=== PATIENT | male | born 1995 | race Caucasian/White ===

== ENCOUNTER 2018-06-11 05:51 | Emergency (ER) | payer SELFPAY ==
[2018-06-11] MEDS ORDERED: KETOROLAC 30 MG/ML INJ ONE (06:34)
[2018-06-11] MEDS ORDERED: NA CHLORIDE 0.9% 1,000 ML ONE (06:34)
[2018-06-11 06:48] LABS: Urine Blood 2+ (NEG); Urine Glucose NEGATIVE (NEG); Urine Protein 1+ (NEG); Urine Specific Gravity >1.030 (1.005-1.030); Urine pH 5.5 (5.0-7.0)
[2018-06-11 06:49] LABS: Urine Bacteria <20 /HPF (NONE SEEN); Urine Culture Reflex Order NOT NEEDED; Urine Mucus 3+ /HPF (NONE SEEN); Urine Volume 1 ML
[2018-06-11 06:57] LABS: Absolute Lymphocytes (CBC) 2.2 K/uL (0.7-4.9); Absolute Monocytes 0.5 K/uL (0.1-1.3); Absolute Neutrophil 4.5 K/uL (1.8-8.0); Basophils % 0.4 % (0-1.3); Eosinophils % 3.2 % (0-4.4); Hematocrit 41.6 % (39.6-49.0); Lymphocytes % 29.4 % (15.3-44.8); MCH 31.8 pg (27.0-35.0); MCV 91.3 fL (80-100); MPV 8.7 fL (7.6-11.3); Monocytes % 7.1 % (3.3-12.3); RBC Red Blood Cell Count 4.56 M/uL (4.33-5.43)
[2018-06-11 07:13] LABS: Albumin 3.8 g/dL (3.4-5.0); Bilirubin Direct 0.1 mg/dL (0-0.2); Bilirubin Total 0.5 mg/dL (0.2-1.0); Potassium 3.3 mmol/L (3.5-5.1); Protein, Total 7.2 g/dL (6.4-8.2)
--- NOTE | 2018-06-11 07:53 | RAD REPORT ---
EXAM DESCRIPTION: CT - Stone Protocol - 06/11/2018 7:12 am CLINICAL HISTORY: Left lower quadrant pain, dysuria A preliminary written report was provided at the time of the study, and the report was reviewed prio r to final dictation. COMPARISON: None. TECHNIQUE: Axial 5 mm thick images were obtained without oral or IV contrast. The [id number] span s the entirety of the system partially obscuring uppermost abdomen and lung bases. All CT scans are performed using dose optimization technique as appropriate and may include automated exposure control or mA/KV adjustment according to patient size. FINDINGS: Patient has a 2-3 mm calcification at the left UVJ. Very little left-sided hydronephrosis is identifiable. No other obstructing calculus in either collecting system. Possible punctate 1 mm no nobstructing calyx calcification on the left. No suspicious renal masses. Isodense masses and pyelone phritis are not excluded on a stone protocol CT scan. Contracted urinary bladder shows no suspicious finding. Imaged portions of the liver, spleen and pancreas show no suspicious findings on non-contrast imaging . No gallbladder or biliary tree abnormality identified. No significant adrenal finding. No suspicious bowel findings. Appendix is not suspicious. No hernia, mass or bulky lymphadenopathy noted. No free air, free fluid or inflammatory stranding. No significant bony abnormality. IMPRESSION: Left UVJ 2-3 mm calculus with little hydronephrosis identifiable. Isodense masses and pyelonephritis are not excluded on stone protocol technique.
--- NOTE | 2018-06-11 08:02 | ER ---
Nurse's Notes [facility] Name: Raphael Bourgeois Age: 23 yrs Sex: Male : 1995 Arrival Date: 06/11/2018 Time: 05:55 Bed 15 Private MD: Devon Poon S Diagnosis: Ureteral calculus Presentation: 06/11 06:03 Presenting complaint: Patient states: pt states he is having LLQ pain and difficulty bb urinating since yesterday morning the pain was tolerable until it woke him up this morning and now has gotten worse. Transition of care: patient was not received from another setting of care. Onset of symptoms was June 10, 2018. Risk Assessment: Do you want to hurt yourself or someone else? Patient reports no desire to harm self or others. Initial Sepsis Screen: Does the patient meet any 2 criteria? No. Patient's initial sepsis screen is negative. Does the patient have a suspected source of infection? No. Patient's initial sepsis screen is negative. Care prior to arrival: None. 06:03 Method Of Arrival: Ambulatory bb 06:03 Acuity: GLORY 3 bb Triage Assessment: 06:05 General: Appears in no apparent distress. Behavior is calm, cooperative. Pain: bb Complains of pain in left lower quadrant Pain currently is 5 out of 10 on a pain scale. Pain began 1 day ago. Neuro: Level of Consciousness is awake, alert, obeys commands, Oriented to person, place, time, situation, Speech is normal. Cardiovascular: No deficits noted. Respiratory: Respiratory effort is even, unlabored. GI: Abdomen is non-distended, Reports lower abdominal pain. : Reports inability to void. Derm: Skin is pink, warm \T\ dry. Musculoskeletal: Circulation, motion, and sensation intact. Historical: - Allergies: 06:05 No Known Allergies; bb - Home Meds: 06:05 None [Active]; bb - PMHx: 06:05 None; bb - PSHx: 06:05 Hernia repair; bb - Immunization history:: Adult Immunizations up to date. - Social history:: Smoking status: Patient uses tobacco products, smokes one pack cigarettes per day. Patient uses alcohol, occasionally. Patient/guardian denies using street drugs. - Ebola Screening: : No symptoms or risks identified at this time. Screenin:07 Abuse screen: Denies threats or abuse. Nutritional screening: No deficits noted. bb Tuberculosis screening: No symptoms or risk factors identified. Fall Risk None identified. Assessment: 06:07 Reassessment: No changes from previously documented assessment. see triage assessment. bb 06:29 Reassessment: pt to CT scan via wheelchair. bb 07:00 General: Appears in no apparent distress. comfortable, Behavior is calm, cooperative, jl7 appropriate for age. Pain: Complains of pain in left lower quadrant Pain currently is 1 out of 10 on a pain scale. Neuro: Level of Consciousness is awake, alert, obeys commands, Oriented to person, place, time, situation. Cardiovascular: Patient's skin is warm and dry. Respiratory: Airway is patent Respiratory effort is even, unlabored, Respiratory pattern is regular, symmetrical. GI: Abdomen is flat, non-distended, Bowel sounds present X 4 quads. Abd is soft X 4 quads Abdomen is tender to palpation in left lower quadrant. : Denies burning with urination. EENT: No signs and/or symptoms were reported regarding the EENT system. Derm: Skin is pink, warm \T\ dry. Musculoskeletal: No signs and/or symptoms reported regarding the musculoskeletal system. Vital Signs: 06:05 BP 113 / 83; Pulse 79; Resp 16 S; Temp 97.8(O); Pulse Ox 100% on R/A; Weight 92.99 kg bb (R); Height 6 ft. 3 in. (190.50 cm) (R); Pain 5/10; 07:19 Pain 1/10; jl7 08:41 BP 110 / 80; Pulse 76; Resp 16; Pulse Ox 100% ; jl7 06:05 Body Mass Index 25.62 (92.99 kg, 190.50 cm) ED Course: 05:55 Patient arrived in ED. es 05:56 Devon Poon MD is Private Physician. es 06:05 Triage completed. bb 06:05 Arm band placed on Patient placed in an exam room, on a stretcher, on pulse oximetry. bb 06:07 Patient has correct armband on for positive identification. Call light in reach. Side bb rails up X 1. Pulse ox on. NIBP on. 06:10 Sow[facility] Vann [facility]C [facility]. snw 06:10 Rogerio Lino MD is Attending Physician. snw 06:25 Initial lab(s) drawn, by me, sent to lab. Inserted saline lock: 20 gauge in right cc antecubital area, using aseptic technique. Blood collected. 06:[address] via wheelchair. kw1 06:35 CT completed. Patient tolerated procedure well. Patient moved back from NV. kw1 06:37 Sofia Horvath, RN is Primary Nurse. lp1 06:38 CT Stone Protocol In Process Unspecified. EDMS 07:50 Primary Nurse role handed off by Sofia Horvath RN jl7 07:50 Theresa Francis, ZOYA is Primary Nurse. jl7 08:40 No provider procedures requiring assistance completed. IV discontinued, intact, jl7 bleeding controlled, No redness/swelling at site. Pressure dressing applied. Administered Medications: 06:49 Drug: TORadol 30 mg Route: IVP; Site: right antecubital; lp1 07:19 Follow up: Pain 1/10; Response: No adverse reaction; Pain is decreased jl7 06:49 Drug: NS 0.9% 1000 ml Route: IV; Rate: 1 bolus; Site: right antecubital; lp1 07:30 Follow up: Response: No adverse reaction; IV Status: Completed infusion jl7 08:00 CANCELLED (no bacteria in urine): Cipro 500 mg PO once snw 08:40 Drug: Flomax 0.4 mg Route: PO; jl7 08:40 Follow up: Response: Medication administered at discharge. jl7 Outcome: 08:02 Discharge ordered by . snw 08:40 Discharged to home ambulatory. jl7 08:40 Condition: stable 08:40 Discharge instructions given to patient, Instructed on discharge instructions, follow up and referral plans. medication usage, Demonstrated understanding of instructions, follow-up care, medications, Prescriptions given X 3. 08:41 Patient left the ED. jl7 Signatures: Dispatcher [employer] EDGA Sowmya Vann, MAG[employer] RACK CLEANER-CsnChioma Sanchez Brenda RN RN Janett Soliz Sofia Horvath, ZOYA RN lp1 Theresa Francis RN RN jl7 Catrina Paul kw1 Corrections: (The following items were deleted from the chart) 07:50 07:49 Pain 1/10 Adult; Response: No adverse reaction; Pain is decreased jl7 jl7
--- NOTE | 2018-06-11 08:03 | EDPHYS ---
Physician Documentation [facility] Name: Raphael Bourgeois Age: 23 yrs Sex: Male : 1995 Arrival Date: 06/11/2018 Time: 05:55 Bed 15 Private MD: Devon Poon S ED Physician Rogerio Lino HPI: 06/11 06:19 This 23 yrs old Male presents to ER via Ambulatory with complaints of snw Abdominal Pain. 06:19 The patient presents with abdominal pain in the left lower quadrant. Onset: The snw symptoms/episode began/occurred suddenly, yesterday, and became worse this morning. The symptoms do not radiate. Associated signs and symptoms: none. The symptoms are described as shooting. Severity of pain: At its worst the pain was moderate severe in the emergency department the pain has improved. The patient has not experienced similar symptoms in the past. The patient has not recently seen a physician. Historical: - Allergies: 06:05 No Known Allergies; bb - Home Meds: 06:05 None [Active]; bb - PMHx: 06:05 None; bb - PSHx: 06:05 Hernia repair; bb - Immunization history:: Adult Immunizations up to date. - Social history:: Smoking status: Patient uses tobacco products, smokes one pack cigarettes per day. Patient uses alcohol, occasionally. Patient/guardian denies using street drugs. - Ebola Screening: : No symptoms or risks identified at this time. ROS: 06:18 Constitutional: Negative for fever, chills, and weight loss, Eyes: Negative for injury, snw pain, redness, and discharge, ENT: Negative for injury, pain, and discharge, Neck: Negative for injury, pain, and swelling, Cardiovascular: Negative for chest pain, palpitations, and edema, Respiratory: Negative for shortness of breath, cough, wheezing, and pleuritic chest pain, Back: Negative for injury and pain, MS/Extremity: Negative for injury and deformity, Skin: Negative for injury, rash, and discoloration, Neuro: Negative for headache, weakness, numbness, tingling, and seizure. 06:18 Abdomen/GI: Positive for abdominal pain, of the left lower quadrant. 06:18 : Positive for urinary symptoms, of the bladder feels full without ability to void. Exam: 06:18 Constitutional: This is a well developed, well nourished patient who is awake, alert, snw and in no acute distress. Head/Face: Normocephalic, atraumatic. Eyes: Pupils equal round and reactive to light, extra-ocular motions intact. Lids and lashes normal. Conjunctiva and sclera are non-icteric and not injected. Cornea within normal limits. Periorbital areas with no swelling, redness, or edema. ENT: Nares patent. No nasal discharge, no septal abnormalities noted. Tympanic membranes are normal and external auditory canals are clear. Oropharynx with no redness, swelling, or masses, exudates, or evidence of obstruction, uvula midline. Mucous membranes moist. Neck: Trachea midline, no thyromegaly or masses palpated, and no cervical lymphadenopathy. Supple, full range of motion without nuchal rigidity, or vertebral point tenderness. No Meningismus. Chest/axilla: Normal chest wall appearance and motion. Nontender with no deformity. No lesions are appreciated. Cardiovascular: Regular rate and rhythm with a normal S1 and S2. No gallops, murmurs, or rubs. Normal PMI, no JVD. No pulse deficits. Respiratory: Lungs have equal breath sounds bilaterally, clear to auscultation and percussion. No rales, rhonchi or wheezes noted. No increased work of breathing, no retractions or nasal flaring. Abdomen/GI: Soft, non-tender, with normal bowel sounds. No distension or tympany. No guarding or rebound. No evidence of tenderness throughout. Back: No spinal tenderness. No costovertebral tenderness. Full range of motion. Skin: Warm, dry with normal turgor. Normal color with no rashes, no lesions, and no evidence of cellulitis. MS/ Extremity: Pulses equal, no cyanosis. Neurovascular intact. Full, normal range of motion. Neuro: Awake and alert, GCS 15, oriented to person, place, time, and situation. Cranial nerves II-XII grossly intact. Motor strength 5/5 in all extremities. Sensory grossly intact. Cerebellar exam normal. Normal gait. Vital Signs: 06:05 BP 113 / 83; Pulse 79; Resp 16 S; Temp 97.8(O); Pulse Ox 100% on R/A; Weight 92.99 kg bb (R); Height 6 ft. 3 in. (190.50 cm) (R); Pain 5/10; 07:19 Pain 1/10; jl7 08:41 BP 110 / 80; Pulse 76; Resp 16; Pulse Ox 100% ; jl7 06:05 Body Mass Index 25.62 (92.99 kg, 190.50 cm) bb MDM: 06:14 Patient medically screened. snw 08:04 Data reviewed: vital signs, nurses notes. Data interpreted: Pulse oximetry: on room air snw is 100 %. Interpretation: normal. Counseling: I had a detailed discussion with the patient and/or guardian regarding: the historical points, exam findings, and any diagnostic results supporting the discharge/admit diagnosis, the presence of at least one elevated blood pressure reading (>120/80) during this emergency department visit, lab results, radiology results, the need for outpatient follow up, to return to the emergency department if symptoms worsen or persist or if there are any questions or concerns that arise at home. Special discussion: Based on the history and exam findings, there is no indication for further emergent testing or inpatient evaluation. I discussed with the patient/guardian the need to see the primary care provider for further evaluation of the symptoms. I discussed with the patient/guardian the need to see the urologist for further evaluation of the symptoms. 06/11 06:11 Order name: Basic Metabolic Panel; Complete Time: 07:14 snw 06/11 06:11 Order name: CBC with Diff; Complete Time: 07:07 snw 06/11 06:11 Order name: Hepatic Function; Complete Time: 07:14 snw 06/11 06:11 Order name: Lipase; Complete Time: 07:14 snw 06/11 06:11 Order name: Urine Microscopic Only; Complete Time: 06:50 snw 06/11 06:15 Order name: Urine Dipstick--Ancillary (enter results); Complete Time: 06:50 mt 06/11 06:11 Order name: IV Saline Lock; Complete Time: 06:28 snw 06/11 06:11 Order name: Labs collected and sent; Complete Time: 06:28 snw 06/11 06:11 Order name: Urine Dipstick-Ancillary (obtain specimen); Complete Time: 06:19 snw 06/11 06:11 Order name: CT Stone Protocol; Complete Time: 07:54 snw Administered Medications: 06:49 Drug: TORadol 30 mg Route: IVP; Site: right antecubital; lp1 07:19 Follow up: Pain /10; Response: No adverse reaction; Pain is decreased jl7 06:49 Drug: NS 0.9% 1000 ml Route: IV; Rate: 1 bolus; Site: right antecubital; lp1 07:30 Follow up: Response: No adverse reaction; IV Status: Completed infusion jl7 08:00 CANCELLED (no bacteria in urine): Cipro 500 mg PO once snw 08:40 Drug: Flomax 0.4 mg Route: PO; jl7 08:40 Follow up: Response: Medication administered at discharge. jl7 Disposition: 06/11/18 08:02 Discharged to Home. Impression: Ureteral calculus. - Condition is Stable. - Discharge Instructions: Potassium Content of Foods, Kidney Stones, Dietary Guidelines to Help Prevent Kidney Stones, Rehydration, Adult. - Prescriptions for Tylenol- Codeine #3 300-30 mg Oral Tablet - take 2 tablets by ORAL route every 6 hours As needed; 10 tablet. Flomax 0.4 mg Oral Capsule, Sust. Release 24 hr - take 1 capsule by ORAL route once daily 1/2 hour following the same meal each day; 5 capsule. Diclofenac Sodium 75 mg Oral Tablet Sustained Release - take 1 tablet by ORAL route 2 times per day; 30 tablet. - Work release form, Medication Reconciliation Form, Thank You Letter, Antibiotic Education, Prescription Opioid Use form. - Follow up: Private Physician; When: 2 - 3 days; Reason: Recheck today's complaints, Continuance of care, Re-evaluation by your physician. Follow up: Emergency Department; When: As needed; Reason: Worsening of condition. Addendum: 06/14/2018 19:00 Co-signature as Attending Physician, Rogerio vera Signatures: Dispatcher [employer] EDMS Rogerio Lino MD MD pkl Sowmya Vann, TORCH HEATER-C TORCH HEATER-Csnw Leta Best, RN RN Sofia Silva RN RN lp1 Theresa Francis RN RN jl7 Corrections: (The following items were deleted from the chart) 06/11 08:00 07:55 Cipro 500 mg PO once ordered. snw snw 08:41 08:02 06/11/2018 08:02 Discharged to Home. Impression: Ureteral calculus. Condition is jl7 Stable. Forms are Medication Reconciliation Form, Thank You Letter, Antibiotic Education, Prescription Opioid Use. Follow up: Private Physician; When: 2 - 3 days; Reason: Recheck today's complaints, Continuance of care, Re-evaluation by your physician. Follow up: Emergency Department; When: As needed; Reason: Worsening of condition. snw
[2018-06-11] MEDS ORDERED: TAMSULOSIN 0.4 MG SR CAP ONE (08:35)
== END 2018-06-11 08:41 | disposition home or self-care (01) ==
LOC: ER 05:51
DX: N20.1 Calculus of ureter (principal); F17.210 Nicotine dependence, cigarettes, uncomplicated
CPT/HCPCS: 36415; 74176; 76377; 80048; 80076; 81003; 81015; 83690; 85025; 96361; 96374; 99284; J7030